=== PATIENT | male | born 1970 | race Hispanic/Latino ===

== ENCOUNTER 2017-07-15 16:17 | Emergency (ER) | payer BC ==
[2017-07-15] MEDS ORDERED: DEXAMETHASONE SOD PHOSPHATE 10MG/ML 1ML VIAL ONE (17:02)
[2017-07-15] MEDS ORDERED: IPRATROPIUM/ALBUTEROL SULFATE 3 ML SOLUTION IH ONE (17:08)
[2017-07-15 17:09] LABS: RAPID GROUP A STREP NEGATIVE (NEGATIVE)
== END 2017-07-15 18:30 | disposition home or self-care (01) ==
LOC: EDH 16:17
DX: J20.9 Acute bronchitis, unspecified (principal); R50.81 Fever presenting with conditions classified elsewhere; Z72.0 Tobacco use
CPT/HCPCS: 71045; 87804 ×2; 87880; 94640; 96372; 99285; J1100

== ENCOUNTER 2017-08-14 11:38 | Emergency (ER) | payer BC ==
[2017-08-14 12:11] LABS: BASOPHILS % (AUTO) 0.7 % (0.0-5.0); EOSINOPHILS % (AUTO) 2.3 % (0.0-8.0); HEMATOCRIT 42.3 % (42-54); LYMPHOCYTES % (AUTO) 34.4 % (21.0-51.0); MEAN CORPUSCULAR HEMOGLOBIN 30.6 pg (27.0-33.0); MEAN CORPUSCULAR HGB CONC 34.8 g/dL (32.0-36.0); MEAN CORPUSCULAR VOLUME 87.8 fL (79-99); NEUTROPHILS % (AUTO) 57.6 % (40.0-77.0); PLATELET COUNT (AUTO) 264 K/uL (130-400); RED BLOOD CELL COUNT(AUTO) 4.82 MIL/uL (4.50-6.20); RED CELL DISTRIBUTION WIDTH 13.6 % (11.0-15.5); WHITE BLOOD COUNT (AUTO) 8.6 K/uL (4.8-10.8)
[2017-08-14 12:52] LABS: CREATININE 0.8 mg/dL (0.5-1.5); POTASSIUM 3.9 mmol/L (3.5-5.1)
[2017-08-14 12:57] LABS: ALBUMIN 3.7 g/dL (3.5-5.0); BILIRUBIN,TOTAL 0.4 mg/dL (0.2-1.0); TOTAL PROTEIN, SERUM 7.1 g/dL (6.0-8.3)
[2017-08-14] MEDS ORDERED: MECLIZINE HCL 25 MG TABLET ONE (13:07)
== END 2017-08-14 15:21 | disposition home or self-care (01) ==
LOC: EDH 11:38
DX: R42 Dizziness and giddiness (principal); R51 Headache; I10 Essential (primary) hypertension; Z72.0 Tobacco use
CPT/HCPCS: 36415; 70450; 80053; 84484; 85025; 93005